=== PATIENT | male | born 1965 | race Two or more races ===

== ENCOUNTER 2020-08-28 11:57 | Inpatient (IN) | payer OTHER ==
[~2020-08-28] VITALS: Ht 185.4 cm; Wt 90.3 kg
[2020-09-03] MEDS ORDERED: HYOSCYAMINE0.125 M1 SL (14:50)
[2020-09-03] MEDS ORDERED: INTESTINEX680 M2 PO (14:51)
[2020-09-03] MEDS ORDERED: PEPCID AC20 MG PO (14:51)
== END 2020-09-03 15:39 | disposition home or self-care (01) | DRG 392 ==
LOC: ER 11:57 → SURG 15:59 → SURH 08-31 13:56
PROVIDERS: ADMIT Colon & Rectal Surgery; ATTEND Colon & Rectal Surgery
PROC: 02HV33Z Insertion of Infusion Device into Superior Vena Cava, Percutaneous Approach (ICD-10-PCS; principal; 2020-08-29)
PROC: BW2110Z Computerized Tomography (CT Scan) of Abdomen and Pelvis using Low Osmolar Contrast, Unenhanced and Enhanced (ICD-10-PCS; 2020-09-02)
DX: K57.20 Diverticulitis of large intestine with perforation and abscess without bleeding (principal); K59.09 Other constipation; Z20.822 Contact with and (suspected) exposure to COVID-19

== ENCOUNTER 2020-10-24 11:30 | Inpatient (IN) | payer OTHER ==
[~2020-10-24] VITALS: Ht 185.4 cm; Wt 88.0 kg
[~2020-10-24 11:30] MED LIST: HYOSCYAMINE0.125 M1 SL; INTESTINEX680 M2 PO; PEPCID AC20 MG PO
[2020-10-31] MEDS ORDERED: VOLTAREN100 GM TOP (11:48)
[2020-10-31] MEDS ORDERED: FLEXERIL (11:48)
[2020-11-05] MEDS ORDERED: FAMOTIDINE20 MG (07:50)
[2020-11-05] MEDS ORDERED: HYOSCYAMINE0.125 M1 (07:50)
[2020-11-05] MEDS ORDERED: FEXMID7.5 MG (07:51)
[2020-11-10] MEDS ORDERED: PERCOCET 5-3251 EACH PO (10:14)
[2020-11-10] MEDS ORDERED: AMOX1TAB5 PO (10:14)
[2020-11-10] MEDS ORDERED: PANTOPRAZOLE SO40 MG PO (10:15)
[2020-11-10] MEDS ORDERED: INTESTINEX680 M1 PO (10:15)
== END 2020-11-10 12:55 | disposition home or self-care (01) | DRG 334 ==
LOC: SURG 11-05 05:35 → O/R 11-05 05:35 → SURG 11-05 10:41 → SURH 11-05 11:15 → SURG 11-10 12:55
PROVIDERS: ADMIT Colon & Rectal Surgery; ATTEND Colon & Rectal Surgery
PROC: 3E0F7SF Introduction of Other Gas into Respiratory Tract, Via Natural or Artificial Opening (ICD-10-PCS; 2020-11-05)
PROC: 4A033R1 Measurement of Arterial Saturation, Peripheral, Percutaneous Approach (ICD-10-PCS; principal; 2020-11-05 06:19)
PROC: 0DTP4ZZ Resection of Rectum, Percutaneous Endoscopic Approach (ICD-10-PCS; principal; 2020-11-05 06:19)
DX: K57.20 Diverticulitis of large intestine with perforation and abscess without bleeding (principal); M25.512 Pain in left shoulder